=== PATIENT | male | born 2000 | race Hispanic/Latino ===

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

== ENCOUNTER 2021-04-14 02:04 | Emergency (ER) | payer BC ==
[~2021-04-14] VITALS: Ht 172.7 cm; Wt 75.0 kg
[2021-04-14 03:01] VITALS: BP 123/76
== END 2021-04-14 03:01 | disposition home or self-care (01) | DRG 605 ==
LOC: ED 02:04
PROC: 0HQDXZZ Repair Right Lower Arm Skin, External Approach (ICD-10-PCS; principal; 2021-04-14)
DX: S51.011A Laceration without foreign body of right elbow, initial encounter (principal); W01.190A Fall on same level from slipping, tripping and stumbling with subsequent striking against furniture, initial encounter; Y92.009 Unspecified place in unspecified non-institutional (private) residence as the place of occurrence of the external cause

== ENCOUNTER 2023-12-13 20:40 | Emergency (ER) | payer SELFPAY ==
[~2023-12-13] VITALS: Ht 172.7 cm; Wt 81.0 kg
[2023-12-13 20:59] VITALS: BP 145/92
[2023-12-13] MEDS ORDERED: LORazepam 2 MG/ML IM ONE (21:10)
[2023-12-13 21:30] VITALS: BP 123/78
[2023-12-13] MEDS ORDERED: LORazepam 0.5 MG/TAB PO ONE (21:50)
[2023-12-13 22:00] VITALS: BP 125/77
[2023-12-13 22:06] VITALS: BP 125/77
[2023-12-13] MEDS ORDERED: ZOLOFT25 MG PO (22:13)
[2023-12-13] MEDS ORDERED: INDERAL10 MG PO (22:14)
== END 2023-12-13 22:06 | disposition home or self-care (01) | DRG 880 ==
LOC: ED 20:40
DX: F41.9 Anxiety disorder, unspecified (principal)
CPT/HCPCS: J2060